=== PATIENT | female | born 1950 | race Caucasian/White ===

== ENCOUNTER → 2018-09-07 09:09 | Outpatient (CLI) | payer MEDICARE, MEDICAID, SELFPAY ==
--- NOTE | 2018-09-07 05:48 | PET_ITS ---
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 COMPARISON EXAMINATION: None available. INDEX LESION SIZE SUV INTERPRETATION Mid abdominal retroperitoneum heterogeneous 34.8 mm (frame 157) 3.5 Fulfills quantitative criteria for viable neoplasm with single-point technique NON-INDEX LESION SIZE SUV INTERPRETATION Left lobe thyroid gland 3.7 May be further investigated with thyroid ultrasound secondary to the quantitative degree of uptake TECHNIQUE: Following the intravenous administration of 16.9 mCi of F-18 deoxyglucose via the left antecubital fossa, multiplanar image acquisitions of the neck, chest, abdomen and pelvis to level of mid thigh, obtained at one hour post radiopharmaceutical administration contemporaneously interpreted with the current CT of the neck, chest, abdomen and pelvis to level of mid thigh, dated 09/07/18 via coregistration reveal: SERUM GLUCOSE LEVEL: 110 mg/dl. HEIGHT: 64 inches. WEIGHT: 251 lbs. FINDINGS: 1. Heterogeneous enhanced glucose metabolism is defined in the mid abdominal retroperitoneum to the left and right of the midline corresponding soft tissue in proximity to surgical clip placement, postsurgical changes on review of CT of the abdomen dated 09/07/18. The calculated maximum standard uptake value is 3.5. The maximal axial diameter of the largest individual metabolic, morphologic abnormality on review of CT of the abdomen dated 09/07/18 is 34.8 mm (AP). 2. Normal physiologic distribution of the radiopharmaceutical is apparent in the hepatic (3.1) and splenic parenchyma, both renal units, bladder and visualized intestinal tract. There is uniform distribution of the radiopharmaceutical concentration defined in the visualized cerebellar hemispheres and cerebral cortical structures.? Diffuse intestinal tract activity is noted throughout all four quadrants of the abdominal-pelvic retroperitoneum, mesentery consistent with normal physiologic distribution of the radiopharmaceutical. Asymmetric increased glucose concentration is defined in the left anterior neck involving level contiguous to the left lobe of the thyroid gland generating a calculated maximum standard uptake value of 3.7. Pertinent CT findings are as follows. CHEST: Bilateral axillary soft tissue densities are non-glucose avid. A calcified soft tissue density noted at the carinal level mediastinum is ametabolic. There are no parenchymal densities-nodules noted in the right and left hemithorax demonstrating discernible, quantitatively significant increased glucose metabolism. ABDOMEN AND PELVIS: The gallbladder is surgically absent. Apparent postsurgical changes are defined in the anterior midline abdominal, pelvic wall. Surgical clip placement is defined in the mid abdominal retroperitoneum with residual soft tissue as previously described. Colonic diverticulosis is demonstrated. Right-left inguinal subcentimeter soft tissue densities demonstrate no evidence of increased glucose metabolism. The uterus appears surgically absent. SKELETAL: Degenerative changes defined in the cervical, thoracic and lumbar spine demonstrate no evidence for glucose hypermetabolism. PET/PET/CT Tumor Base -Thigh Init IMPRESSION: 1. ABNORMAL EXAMINATION INDICATIVE OF MALIGNANT VIABLE NEOPLASM. 2. Increased glucose concentration identified in the mid abdominal retroperitoneum in the apparent surgical bed fulfills quantitative criteria for viable neoplasm with single-point technique. 3. Asymmetric increased glucose concentration identified in the left lobe of the thyroid gland does not fulfill strict quantitative criteria for viable primary thyroidal neoplasm. (Owen Cooper et al, Journal of Clinical Endocrinology and Metabolism 88:4100, 2003). Correlation with thyroid ultrasound may be of benefit for further evaluation. Electronic Signature Irwin Peña D.O. Electronically Signed: Irwin Peña DO at 23:28 EST Tel , Service support ,
== END ==
PROVIDERS: Family Provider Preventive Medicine Occupational Medicine; PCP Preventive Medicine Occupational Medicine
DX: C48.0 Malignant neoplasm of retroperitoneum (principal)
CPT/HCPCS: 78815; A9552

== ENCOUNTER → 2019-01-28 12:20 | Outpatient (CLI) | payer MEDICARE, MEDICAID, SELFPAY ==
[2019-01-14 10:15] VITALS: BMI 43.2
--- NOTE | 2019-01-28 12:22 | CT_ITS ---
STUDY: LOW DOSE CT LUNG CANCER SCREENING REASON FOR EXAM: Female, 68 years old. Chronic wheezing, shortness of breath. Smoking history RADIATION DOSAGE (If Supplied By Facility): CTDIvol = ( 4.02 ) mGy, DLP = ( 141.95 ) mGycm TECHNIQUE: No contrast was administered. Low dose technique was utilized (average mAS-38 and kVp 120). 1.25 mm axial source images with a slice interval of 1.25-mm were reconstructed in lung windows. 2.5 mm axial source images with a slice interval of 2.5-mm were reconstructed in lung windows. 5.0 mm axial source images with a slice interval of 5.0-mm were reconstructed in soft tissue windows. Nodule measured using lung windows on PACS and/or independent workstation with automated measurement of minimum and maximum diameter. Nodule measurement reported as average diameter rounded to the nearest whole number. Growth is defined as an increase ins size of greater than 1.5 mm. COMPARISON: None. FINDINGS: Lung nodules There is a 2 mm anterior right upper lobe nodule on series 2 image 88.. Lungs COPD: None. Fibrosis: None. Lymph nodes: None. Other findings: There is mild scarring or subsegmental atelectasis along the medial right middle lobe and lingula. Pleural space Effusion: None. Calcification: None. Thickening: None. Heart Heart size: Normal. Coronary calcification: Mild. Pericardial effusion: None. Other findings: None. Upper abdomen: Cholecystectomy clips are seen. Thorax: None. Base of neck: None. Chest wall: There is a peripherally calcified nodule in the medial, superior right breast measuring approximately 1.[address]/Low Dose CT Lung Screening IMPRESSION: Lung-RADS category 2 - Continue annual screening with LDCT in 12 months. IMPORTANT NOTES FOR USE: ACR Lung-RADS Version 1.0 Assessment Categories Release Date: February 14, 2014 Category: Coded 0-4 bases on nodule(s) with highest degree of suspicion. Negative screen is defined as categories 1 and 2; a positive screen is defined as categories 3 and 4. Category 3 and 4A nodules that are unchanged on interval CT should be coded as category 2, and individuals returned to screening in 12 months. Category 4X: Category 3 or 4 nodules with additional imaging findings that increase the suspicion of lung cancer, such as spiculation, GGN that doubles in size in 1 year, enlarged lymph notes, etc. Category Modifiers: S (significant finding unrelated to lung cancer) and C (prior history of treated lung cancer) may be added to the 0-4 Lung-RADS Electronically Signed: Gypsy Miller, at 9:53 EDT Tel , Service support ,
[2019-01-28 13:24] VITALS: PULSE 100; PULSE 114; PULSE 120; PULSE 121; PULSE 123; PULSE 124; PULSE 98; O2SAT 95; O2SAT 96; O2SAT 97; O2SAT 98
--- NOTE | 2019-01-29 11:26 | PCM.PSN.6M ---
PSN 6 Minute Walk Test - 6 Minute Walk Test 6 Minute Walk Test: 6 Minute Walk Test PSN:6-Minute Walk Test Start: 01/28/19 13:23 Freq: Status: Active Protocol: RESP.6MINW Document 01/28/19 13:24 [facility] (Rec: 01/28/19 13:29 [facility] [id number]) 6 Minute Walk Test Date Performed 01/28/19 Time Performed 12:30 Height 5 ft 5 in Weight: 252 lb Weight in Pounds 252.[address]: Herber Salter Assistive device used: Cane Pre-test Oxygen Delivery Method Room Air Pulse Ox (%) 97 Pulse Rate (60-100 beats/min) 98 Dyspnea Chong Scale (0-10) 2 1st minute Oxygen Delivery Method Room Air Pulse Ox (%) 95 Pulse Rate (60-100 beats/min) 114 H Dyspnea Chong Scale (0-10) 3 Number of Rests Taken 1 Reported Symptoms Increased Work of Breathing 2nd minute Oxygen Delivery Method Room Air Pulse Ox (%) 96 Pulse Rate (60-100 beats/min) 120 H Dyspnea Chong Scale (0-10) 5 Number of Rests Taken 1 Reported Symptoms Increased Work of Breathing 3rd minute Oxygen Delivery Method Room Air Pulse Ox (%) 98 Pulse Rate (60-100 beats/min) 124 H Dyspnea Chong Scale (0-10) 5 Reported Symptoms Increased Work of Breathing 4th minute Oxygen Delivery Method Room Air Pulse Ox (%) 95 Pulse Rate (60-100 beats/min) 121 H Dyspnea Chong Scale (0-10) 5 Number of Rests Taken 1 Reported Symptoms Increased Work of Breathing 5th minute Oxygen Delivery Method Room Air Pulse Ox (%) 96 Pulse Rate (60-100 beats/min) 123 H Dyspnea Chong Scale (0-10) 4 Number of Rests Taken 1 Reported Symptoms Increased Work of Breathing 6th minute Oxygen Delivery Method Room Air Pulse Ox (%) 97 Pulse Rate (60-100 beats/min) 120 H Dyspnea Chong Scale (0-10) 5 Reported Symptoms Increased Work of Breathing Post-test Oxygen Delivery Method Room Air Pulse Ox (%) 96 Pulse Rate (60-100 beats/min) 100 Dyspnea Chong Scale (0-10) 2 Full Laps Walked 9 Partial Lap, Number of Tiles Walked 0 Total Distance Walked (ft) 531 - Interpretation Interpretation: The patient ambulated 531 feet over the course of 6 minutes beginning on room air with the use of a cane and while taking several breaks. Pretesting oxygen saturation was noted to be 97% on room air. With ambulation, the ismael oxygen saturation was 95%. The patient did develop physiologic tachycardia with exertion. There was evidence of impaired walk distance. Although no significant exertional oxygen desaturation was documented, the sensitivity for detecting such a change would have been limited by the patient's limited walk distance and frequent breaks. - Recommendations Recommendations: There is no indication for the use of supplemental oxygen at this time.
--- NOTE | 2019-01-29 11:33 | WT_ITS ---
PSN 6 Minute Walk Test - 6 Minute Walk Test 6 Minute Walk Test: 6 Minute Walk Test PSN:6-Minute Walk Test Start: 01/28/19 13:23 Freq: Status: Active Protocol: RESP.6MINW Document 01/28/19 13:24 [facility] (Rec: 01/28/19 13:29 [facility] [id number]) 6 Minute Walk Test Date Performed 01/28/19 Time Performed 12:30 Height 5 ft 5 in Weight: 252 lb Weight in Pounds 252.[address]: Herber Salter Assistive device used: Cane Pre-test Oxygen Delivery Method Room Air Pulse Ox (%) 97 Pulse Rate (60-100 beats/min) 98 Dyspnea Chong Scale (0-10) 2 1st minute Oxygen Delivery Method Room Air Pulse Ox (%) 95 Pulse Rate (60-100 beats/min) 114 H Dyspnea Chong Scale (0-10) 3 Number of Rests Taken 1 Reported Symptoms Increased Work of Breathing 2nd minute Oxygen Delivery Method Room Air Pulse Ox (%) 96 Pulse Rate (60-100 beats/min) 120 H Dyspnea Chong Scale (0-10) 5 Number of Rests Taken 1 Reported Symptoms Increased Work of Breathing 3rd minute Oxygen Delivery Method Room Air Pulse Ox (%) 98 Pulse Rate (60-100 beats/min) 124 H Dyspnea Chong Scale (0-10) 5 Reported Symptoms Increased Work of Breathing 4th minute Oxygen Delivery Method Room Air Pulse Ox (%) 95 Pulse Rate (60-100 beats/min) 121 H Dyspnea Chong Scale (0-10) 5 Number of Rests Taken 1 Reported Symptoms Increased Work of Breathing 5th minute Oxygen Delivery Method Room Air Pulse Ox (%) 96 Pulse Rate (60-100 beats/min) 123 H Dyspnea Chong Scale (0-10) 4 Number of Rests Taken 1 Reported Symptoms Increased Work of Breathing 6th minute Oxygen Delivery Method Room Air Pulse Ox (%) 97 Pulse Rate (60-100 beats/min) 120 H Dyspnea Chong Scale (0-10) 5 Reported Symptoms Increased Work of Breathing Post-test Oxygen Delivery Method Room Air Pulse Ox (%) 96 Pulse Rate (60-100 beats/min) 100 Dyspnea Chong Scale (0-10) 2 Full Laps Walked 9 Partial Lap, Number of Tiles Walked 0 Total Distance Walked (ft) 531 - Interpretation Interpretation: The patient ambulated 531 feet over the course of 6 minutes beginning on room air with the use of a cane and while taking several breaks. Pretesting oxygen saturation was noted to be 97% on room air. With ambulation, the ismael oxygen saturation was 95%. The patient did develop physiologic tachycardia with exertion. There was evidence of impaired walk distance. Although no significant exertional oxygen desaturation was documented, the sensitivity for detecting such a change would have been limited by the patient's limited walk distance and frequent breaks. - Recommendations Recommendations: There is no indication for the use of supplemental oxygen at this time.
== END ==
PROVIDERS: Family Provider Preventive Medicine Occupational Medicine; PCP Preventive Medicine Occupational Medicine; Referring Provider Internal Medicine Critical Care Medicine; Visit Provider Internal Medicine Critical Care Medicine
DX: J43.9 Emphysema, unspecified (principal); R06.09 Other forms of dyspnea; G47.10 Hypersomnia, unspecified; Z13.9 Encounter for screening, unspecified
CPT/HCPCS: 94618; G0297

== ENCOUNTER → 2019-01-29 12:51 | Outpatient (CLI) | payer MEDICARE, MEDICAID, SELFPAY ==
[2019-01-14 10:15] VITALS: BMI 43.2
--- NOTE | 2019-01-30 08:12 | PFT ---
INTRODUCTION: The patient is a 68-year-old male that presents for pulmonary function studies secondary to a diagnosis of dyspnea. Respiratory therapy reports good patient effort. Bronchodilators were used during testing. INTERPRETATION: Forced expiration spirometry demonstrates the presence of a moderately severe large airways obstructive ventilatory defect. There was no significant response to aerosolized bronchodilators. Spirograms are of good quality and plateau gradually. Body plethysmography was performed and reveals a decreased TLC to 4.06 L, 80% of predicted, indicative of a mild restrictive ventilatory impairment. The remainder of the lung volumes are symmetrically reduced. Diffusing capacity by single breath CO is moderately reduced at 51% of predicted. When compared to pulmonary function studies from February 2010, there has been a 19% reduction in FEV1 along with a 31% reduction in DLCO. IMPRESSION: Irreversible moderately severe mixed ventilatory defect with symmetric reduction in diffusing capacity. There has been worsening in the patient's pulmonary function studies since 2009, as noted above.
--- NOTE | 2019-01-30 08:15 | PFT_ITS ---
INTRODUCTION: The patient is a 68-year-old male that presents for pulmonary function studies secondary to a diagnosis of dyspnea. Respiratory therapy reports good patient effort. Bronchodilators were used during testing. INTERPRETATION: Forced expiration spirometry demonstrates the presence of a moderately severe large airways obstructive ventilatory defect. There was no significant response to aerosolized bronchodilators. Spirograms are of good quality and plateau gradually. Body plethysmography was performed and reveals a decreased TLC to 4.06 L, 80% of predicted, indicative of a mild restrictive ventilatory impairment. The remainder of the lung volumes are symmetrically reduced. Diffusing capacity by single breath CO is moderately reduced at 51% of predi cted. When compared to pulmonary function studies from February 2010, there has been a 19% reduction in FEV1 along with a 31% reduction in DLCO. IMPRESSION: Irreversible moderately severe mixed ventilatory defect with symmetric reduction in diffusing capacity. There has been worsening in the patient's pulmonary function studies since 2009, as noted above.
== END ==
PROVIDERS: Family Provider Preventive Medicine Occupational Medicine; PCP Preventive Medicine Occupational Medicine; Referring Provider Internal Medicine Critical Care Medicine; Visit Provider Internal Medicine Critical Care Medicine
DX: R06.09 Other forms of dyspnea (principal); G47.10 Hypersomnia, unspecified
CPT/HCPCS: 94060; 94726; 94729

== ENCOUNTER → 2019-02-12 20:25 | Outpatient (CLI) | payer MEDICARE, MEDICAID, SELFPAY ==
[2019-01-14 10:15] VITALS: BMI 43.2
== END ==
PROVIDERS: Family Provider Preventive Medicine Occupational Medicine; PCP Preventive Medicine Occupational Medicine; Referring Provider Internal Medicine Critical Care Medicine; Visit Provider Internal Medicine Critical Care Medicine
DX: G47.10 Hypersomnia, unspecified (principal); R06.09 Other forms of dyspnea
CPT/HCPCS: 95810

== ENCOUNTER → 2019-03-18 19:58 | Outpatient (CLI) | payer MEDICARE, MEDICAID, SELFPAY ==
[2019-01-14 10:15] VITALS: BMI 43.2
== END ==
PROVIDERS: Family Provider Preventive Medicine Occupational Medicine; PCP Preventive Medicine Occupational Medicine; Referring Provider Nurse Practitioner Acute Care; Visit Provider Nurse Practitioner Acute Care
DX: G47.33 Obstructive sleep apnea (adult) (pediatric) (principal)
CPT/HCPCS: 95811